=== PATIENT | male | born 1995 | race Caucasian/White ===

== ENCOUNTER 2019-08-12 09:34 | Emergency (ER) | payer OTHER ==
[~2019-08-12] VITALS: Ht 180.3 cm; Wt 74.8 kg
[2019-08-12 09:37] VITALS: BP 143/67
[2019-08-12] MEDS ORDERED: NOHOMEMEDICATIONS (09:43)
[2019-08-12] MEDS ORDERED: NAPROSYN500 MG PO (10:08)
== END 2019-08-12 10:32 | disposition home or self-care (01) ==
LOC: ER 09:34
DX: L55.1 Sunburn of second degree (principal)